=== PATIENT | male | born 1955 | race Caucasian/White ===

== ENCOUNTER 2022-10-16 00:36 | Day surgery (SDC) | payer OTHER, SELFPAY ==
[2022-10-04 11:52] VITALS: BMI 29.1
[2022-10-16 09:28] VITALS: BP 133/76; PULSE 52; RESP 18; TEMP 36.3; O2SAT 97
[2022-10-16] MEDS: LACTATED RINGERS 1,000 ML 150 ML IV CONT (09:37)
--- NOTE | 2022-10-16 10:03 | WPDANESEPPF ---
Anes - Initial Pre Proc Eval Procedure: Operation Date: 10/16/22 10:30 Proposed Procedures p Colonoscopy - Mazin Escalante MD Date/Time: 10/16/22 10:03 Surgeon: Mazin Escalante MD Pre Op Diagnosis: hx colon polyps, neoplasm screening Patient Data Age: 67 Gender: M Height: 1.75 m Weight: 89.9 kg Last Vital Signs Temp 97.4 F L 10/16/22 09:28 Pulse 52 L 10/16/22 09:28 Resp 18 10/16/22 09:28 BP 133/76 10/16/22 09:28 Pulse Ox 97 10/16/22 09:28 O2 Del Method Room Air 10/16/22 09:28 Allergies Allergy/AdvReac Type Severity Reaction Status Date / Time No Known Allergies Allergy Verified 10/16/22 09:25 Home Medications Medication Instructions Recorded Confirmed Type acetaminophen 500 mg tablet 500 mg PO QID PRN Pain 10/04/22 10/16/22 History alprazolam 0.5 mg tablet 0.5 mg PO HS PRN Anxiety 10/04/22 10/16/22 History amlodipine 10 mg tablet 10 mg PO DAILY 10/04/22 10/16/22 History docusate sodium 100 mg capsule 100 mg PO BID PRN Constipation 10/04/22 10/16/22 History (Colace) fluticasone propionate 50 1 spray intranasal DAILY 10/04/22 10/16/22 History mcg/actuation nasal spray,suspension hydralazine 25 mg tablet 25 mg PO TID 10/04/22 10/16/22 History lisinopril 40 mg tablet 40 mg PO DAILY 10/04/22 10/16/22 History omega 0-ssu-bnc-fish oil 1,200 mg 1 cap PO TID 10/04/22 10/16/22 History (144 mg-216 mg) capsule (Fish Oil) rosuvastatin 20 mg tablet 20 mg PO HS 10/04/22 10/16/22 History zolpidem 10 mg tablet 10 mg PO HS PRN Insomnia 10/04/22 10/16/22 History Patient hx anesthesia problems: none Family hx anesthesia problems: none Results Review: All pre-operative results and documents have been reviewed as part of the pre-operative evaluation. [facility] Social History Social History Smoking status: Former smoker Substance use type: does not use Living arrangements: alone Spiritual care concerns: No Anes - Eval Final PreProcedure Day of Procedure 10/16/22 10:03 Patient weight: normal Heart: regular rate and rhythm Lungs: clear to auscultation Airway: Mallampati scale class III Neurological: alert and oriented Last oral intake: >/= 8 hours ASA classification: III Emergent: no Anesthetic plan: proceed Anesthesia type and monitoring: general GIVS and standard monitoring Results Review: All pre-operative results and documents have been reviewed as part of the pre-operative evaluation. Informed Consent: The patient's anesthetic plan and its attendant risks and benefits were discussed with the patient/family/POA. Questions were solicited and answers provided to the satisfaction of the patient/family/POA.
--- NOTE | 2022-10-16 10:06 | PM.HPGS ---
History of Present Illness History of Present Illness Consent: Risks, benefits, and alternatives have been discussed and questions answered. Patient agrees to proceed with procedure. Chief complaint: hx colon polyps, neoplasm screening Narrative: Tien Guevara is a 67 year old male Presents for screening colonoscopy. Patient's current weight appetite and bowel movements are normal. Patient denies abdominal pain. He has had no bleeding. Family history noncontributory. Patient's past medical history is significant for adenomatous colon polyps. Patient has a history of carcinoma the appendix resected in 2005. In the last several years patient has been treated for prostate carcinoma status post resection and also status post cholecystectomy. Review of Systems Review of Systems: Review of systems noncontributory. [facility] Social History Social History Smoking status: Former smoker Substance use type: does not use Living arrangements: alone Spiritual care concerns: No Meds Home Medications and Allergies Home Medications Medication Instructions Recorded Confirmed Type acetaminophen 500 mg tablet 500 mg PO QID PRN Pain 10/04/22 10/16/22 History alprazolam 0.5 mg tablet 0.5 mg PO HS PRN Anxiety 10/04/22 10/16/22 History amlodipine 10 mg tablet 10 mg PO DAILY 10/04/22 10/16/22 History docusate sodium 100 mg capsule 100 mg PO BID PRN Constipation 10/04/22 10/16/22 History (Colace) fluticasone propionate 50 1 spray intranasal DAILY 10/04/22 10/16/22 History mcg/actuation nasal spray,suspension hydralazine 25 mg tablet 25 mg PO TID 10/04/22 10/16/22 History lisinopril 40 mg tablet 40 mg PO DAILY 10/04/22 10/16/22 History omega 9-sgp-lgf-fish oil 1,200 mg 1 cap PO TID 10/04/22 10/16/22 History (144 mg-216 mg) capsule (Fish Oil) rosuvastatin 20 mg tablet 20 mg PO HS 10/04/22 10/16/22 History zolpidem 10 mg tablet 10 mg PO HS PRN Insomnia 10/04/22 10/16/22 History Allergies Allergy/AdvReac Type Severity Reaction Status Date / Time No Known Allergies Allergy Verified 10/16/22 09:25 Vital Signs Vital Signs - 24 hr 10/16/22 09:28 Temperature 97.4 F L Pulse Rate 52 L Respiratory Rate 18 Blood Pressure 133/76 Pulse Oximetry 97 Oxygen Delivery Room Air Exam Narrative: Physical exam reveals patient to be alert. Vital signs stable. HEENT exam is unremarkable. Patient is anicteric. Lungs are clear to auscultation and percussion. Heart is without murmur or extra sounds. Abdomen bowel sounds are present soft nontender with no organomegaly. Digital external rectal exam is normal. Assessment and Plan Assessment and plan (1) History of colon polyps: Code(s): Z86.010 - Personal history of colonic polyps Status: Acute Assessment and Plan: Patient has a history of adenomatous colon polyps. For this reason surveillance colonoscopy advised every 5 years. (2) History of malignant neoplasm of appendix: Code(s): Z85.09 - Personal history of malignant neoplasm of other digestive organs Status: Acute
[2022-10-16 11:24] VITALS: BP 112/69; PULSE 57; RESP 18; O2SAT 96
[2022-10-16 11:34] VITALS: BP 128/80; PULSE 61; RESP 20; O2SAT 97
[2022-10-16 11:44] VITALS: BP 141/80; PULSE 48; RESP 20; O2SAT 98
== END 2022-10-16 11:52 | disposition home or self-care (01) ==
PROVIDERS: PCP Hospitalist; Visit Provider Internal Medicine Gastroenterology
PROC: 0DJD8ZZ Inspection of Lower Intestinal Tract, Via Natural or Artificial Opening Endoscopic (ICD-10-PCS; CPT 45378; principal; 2022-10-16 10:30)
DX: Z12.11 Encounter for screening for malignant neoplasm of colon (principal); K64.8 Other hemorrhoids; Z86.010 Personal history of colon polyps; Z85.09 Personal history of malignant neoplasm of other digestive organs; Z85.46 Personal history of malignant neoplasm of prostate
CPT/HCPCS: G0105; J2704; J7120